=== PATIENT | male | born 1965 | race Caucasian/White ===

== ENCOUNTER → 2020-12-10 09:52 | Outpatient (CLI) | payer OTHER ==
[~2020-12-10 09:52] MED LIST: DOLOGEN CAPLET1 TAB PO; LIPITOR20 MG; MICARDIS40 MG; TRIGLIDE50 MG
== END | disposition home or self-care (01) ==
LOC: PPH VACUNA 09:52
DX: Z23 Encounter for immunization (principal)

== ENCOUNTER 2021-06-11 08:00 | Outpatient (CLI) | payer OTHER | END 2021-06-11 08:30 | disposition home or self-care (01) | LOC: PPH VACUNA 08:00 | PROVIDERS: ATTEND Emergency Medicine Pediatric Emergency Medicine | DX: Z23 Encounter for immunization (principal) ==